=== PATIENT | female | born 1945 | race Caucasian/White ===

== ENCOUNTER 2018-06-15 07:40 | Inpatient (IN) ==
--- NOTE | 2018-06-15 07:44 | Emergency Department Note ---
Disposition Clinical Impression: SBO (small bowel obstruction), Ischemic bowel disease Disposition: Still a Patient Condition: Good Referrals: Darin Delgado DO [Primary Care Provider] - Forms: ED Satisfaction Letter, Work/School Release General Adult HPI - General Stated complaint: R flank pain Time Seen by Provider: 06/15/18 07:42 Nursing Notes Reviewed: Yes Vital Signs Reviewed: Yes - History of Present Illness HPI Narrative: 73-year-old female just emergency department with concern for right lower quadrant abdominal pain that has been going on for the last 2 days. Patient reports nausea with it. She denies any fever, vomiting, diarrhea, constipation, hematuria, dysuria, urinary frequency, urinary urgency. Patient states that she has had multiple surgeries including an appendectomy, cholecystectomy, hernia repair. Patient states that she has had intermittent abdominal pain similar to this in the past, but has never been this bad before which prompted her visit to the emergency department today. Patient states the pain radiates into her right flank. - Related Data Previous Rx's Medication Instructions Recorded Ondansetron ODT [Zofran ODT] 4 mg PO Q6HR #10 tab.rapdis 09/08/16 cephALEXin [Keflex] 500 mg PO TID #30 capsule 09/08/16 Allergies Allergy/AdvReac Type Severity Reaction Status Date / Time Bee Pollen Allergy Anaphylaxis Verified 06/15/18 08:13 gabapentin Allergy Rash Verified 06/15/18 08:13 All systems ED: reviewed and negative except as stated. Review of Systems: As Per HPI Constitutional: Denies: fever Cardiovascular: Denies: chest pain Respiratory: Denies: dyspnea Gastrointestinal: Reports: abdominal pain, nausea. Denies: vomiting, diarrhea, constipation Genitourinary: Denies: urgency, dysuria, frequency, hematuria Musculoskeletal: Reports: back pain Neurological: Denies: headache Endocrine: Denies: fatigue Past Medical History - Past Medical History Medical history: Reports: atrial fibrillation, diabetes, hypertension, renal disease Psychiatric history: Reports: no psych history - Social History Smoking Status: Never smoker Smokeless Tobacco Status: No Alcohol use: Reports: none Drug use: Reports: none Physical Exam - General Limitations: no limitations General appearance: alert, in no apparent distress - Head Head exam: normocephalic - Eye Eye exam: Present: EOMI. Absent: scleral icterus - ENT ENT exam: mucous membranes moist - Neck Neck exam: Present: trachea midline - Chest Chest inspection: Present: symmetric chest wall rise - Cardiovascular Cardiovascular exam: Present: normal rhythm, tachycardia - Abdominal Exam Abdominal exam: Present: soft, tenderness. Absent: distention, guarding, rebound, rigidity Abdominal tenderness: Present: RLQ, moderate - Extremities Exam Extremities exam: Present: normal capillary refill - Back Exam Back exam: Absent: CVA tenderness (R), CVA tenderness (L) - Neurological Exam Neurological exam: Present: alert, oriented X3 - Psychiatric Psychiatric exam: Present: normal affect, normal mood - Skin Skin exam: Present: warm, dry, intact Course Vital Signs Temperature 97.5 F L 06/15/18 07:43 Pulse Rate 110 06/15/18 07:43 Respiratory Rate 18 06/15/18 07:43 Blood Pressure 98/67 06/15/18 07:43 O2 Sat by Pulse Oximetry 96 06/15/18 07:43 Temperature 97.5 F L 06/15/18 08:10 Pulse Rate 110 06/15/18 08:10 Respiratory Rate 18 06/15/18 08:10 Blood Pressure 98/67 06/15/18 08:10 O2 Sat by Pulse Oximetry 96 06/15/18 08:10 Oxygen Delivery Oxygen Delivery Room Air Medical Decision Making - [facility] Narrative Medical decision making narrative: 73-year-old female presents emergency department with right lower quadrant abdominal pain radiating to the right flank. Patient does not appear to be in any severe distress at this time. We will obtain CT scan of abdomen and pelvis with IV contrast. We are also provided fluids, pain medication, Zofran. CT scan of abdomen and pelvis reveals ventral hernia of the right lower quadrant is contained within the abdominal wall muscular layers. There is evidence of obstruction of the distal jejunum with dilated proximal loops and decompressed distal bowel loops. Within the hernia sac that is new ascites and bowel wall thickening and edema suggesting possible vascular compromise. Creatinine is mildly elevated at 1.32 with a GFR of 39. Other labs are within normal limits. I have obtained a lactic acid and is currently pending. Spoke with Dr. Peña, the general surgeon on the phone. She stated that she would have the patient admitted to her service. Patient has not eaten since 8:30 last night. Currently on Eliquis for atrial fibrillation. Last took Eliquis last night as well. I discussed the plan for admission with patient and family at bedside. They agree with plan. Abdomen/Pelvis CT 06/15/18 07:55 IMPRESSION: 1. Right lower quadrant ventral hernia which is contained within the abdominal wall muscular layers. New since the prior exam there is evidence of obstruction in the distal jejunum with dilated proximal loops and decompressed distal loops. Within the hernia sac there is new ascites and bowel wall thickening and edema suggesting possible vascular compromise. 2. No evidence of perforation. D/ / 06/15/2018 09:20:31 Satish Crane MD / Surekha Chowdhury Interpreting Provider: Satish Crane MD - Lab Data Result diagrams: 06/15/18 07:42 06/15/18 07:42 Lab Results 06/15/18 06/15/18 Range/Units 07:42 07:42 WBC 8.5 (4.3-11.1) K/mcL RBC 4.51 (3.82-4.97) M/mcL Hgb 14.3 (11.5-15.4) g/dL Hct 42.5 (35.3-44.9) % MCV 94.2 (83.0-100.0) fL MCH 31.7 (28.0-33.3) pg MCHC 33.6 (31.6-35.5) g/dL RDW 12.6 (11.5-14.5) % Plt Count 263 (140-400) K/mcL MPV 9.8 (9.4-12.4) fL Immature Gran % 0.2 (0-4) % Seg Neutrophils % 63.5 % Lymphocytes % 29.0 % Monocytes % 5.9 % Eosinophils % 0.8 % Basophils % 0.6 % Neutrophils # 5.4 (1.6-8.9) K/mcL Lymphocytes # 2.5 (0.6-4.6) K/mcL Monocytes # 0.5 (0.0-1.3) K/mcL Eosinophils # 0.1 (0.0-0.6) K/mcL Basophils # 0.1 (0.0-0.2) K/mcL Sodium 136 (136-145) mEq/L Potassium 4.0 (3.5-5.1) mEq/L Chloride 101 (98-107) mEq/L Carbon Dioxide 22 L (23-29) mEq/L BUN 27 H (8-23) mg/dL Creatinine 1.32 H (0.60-1.20) mg/dL Est GFR ( Amer) 48 L (> 60) Est GFR (Non-Af Amer) 39 L (> 60) BUN/Creatinine Ratio 20 (6-26) Glucose 157 H (70-105) mg/dL Calculated Osmolality 290 (280-300) Calcium 9.2 (8.6-10.3) mg/dL Total Bilirubin 0.8 (0.3-1.0) mg/dL AST 15 (13-39) Units/L ALT 10 (7-52) Units/L Alkaline Phosphatase 71 (34-104) Units/L Serum Total Protein 6.7 (6.4-8.9) g/dL Albumin 3.8 (3.5-5.7) g/dL Globulin 2.9 (2.4-3.5) g/dL Albumin/Globulin Ratio 1.3 (1.1-2.2) Lipase 22 (11-82) Units/L
[2018-06-15] MEDS ORDERED: Isovue-370 500 ML INFUS..BTL IV ONE (07:56)
[2018-06-15] MEDS ORDERED: 0.9 % Sodium Chloride 1,000 ML IVC ONE (07:56)
[2018-06-15] MEDS ORDERED: Ondansetron 4 MG/2 ML VIAL IVP ONE (07:56)
[2018-06-15] MEDS ORDERED: *HR* FentaNYL (PF) 100 MCG/2 ML VIAL IVP ONE (07:56)
--- NOTE | 2018-06-15 08:11 | Emergency Department Note ---
Disposition Clinical Impression: Abdominal pain Qualifiers: Abdominal location: right lower quadrant Qualified Code(s): R10.31 - Right lower quadrant pain Disposition: Still a Patient Referrals: Darin Delgado DO [Primary Care Provider] - General Adult HPI - General Chief complaint: ED Abdominal Pain Stated complaint: R flank pain Time Seen by Provider: 06/15/18 07:42 Limitations: no limitations - History of Present Illness HPI Narrative: Attestation note I examined this patient and my medical decision-making was reviewed with the Resident Physician/STATUARY PAINTER/PA. I agree with the documented findings, disposition and treatment plan as described except to the extent set forth below Patient seen with emergency medicine resident Anatoly Stovall, please see copy of his note for details of this patient encounter Briefly: 73-year-old female multiple abdominal surgeries including appendectomy presents with a 2-3 days of increasing right lower quadrant right flank pain. No dysuria nausea but no vomiting no fever or chills she has right lower quadrant tenderness but no rebound or guarding. Normoactive bowel sounds she is passing gas. Blood pressure initially was a little low patient is having retractions getting IV fluids anti-medics analgesics screening labs urinalysis and abdominal pelvic CT. Disposition pending. Pain Scale: 9 - Related Data Previous Rx's Medication Instructions Recorded Ondansetron ODT [Zofran ODT] 4 mg PO Q6HR #10 tab.rapdis 09/08/16 cephALEXin [Keflex] 500 mg PO TID #30 capsule 09/08/16 Allergies Allergy/AdvReac Type Severity Reaction Status Date / Time Bee Pollen Allergy Anaphylaxis Verified 09/08/16 15:42 gabapentin Allergy Rash Verified 09/08/16 15:42 Constitutional: Denies: fever Cardiovascular: Denies: chest pain Respiratory: Denies: dyspnea Gastrointestinal: Reports: abdominal pain, nausea. Denies: vomiting, diarrhea, constipation Genitourinary: Denies: urgency, dysuria, frequency, hematuria Musculoskeletal: Reports: back pain Neurological: Denies: headache Endocrine: Denies: fatigue Past Medical History - Past Medical History Medical history: Reports: atrial fibrillation, diabetes, hypertension, renal disease Psychiatric history: Reports: no psych history - Social History Smoking Status: Never smoker Smokeless Tobacco Status: No Alcohol use: Reports: none Drug use: Reports: none Physical Exam - General Limitations: no limitations General appearance: alert, in no apparent distress Course Vital Signs Temperature 97.5 F L 06/15/18 07:43 Pulse Rate 110 06/15/18 07:43 Respiratory Rate 18 06/15/18 07:43 Blood Pressure 98/67 06/15/18 07:43 O2 Sat by Pulse Oximetry 96 06/15/18 07:43 Temperature 97.5 F L 06/15/18 07:43 Pulse Rate 110 06/15/18 07:43 Respiratory Rate 18 06/15/18 07:43 Blood Pressure 98/67 06/15/18 07:43 O2 Sat by Pulse Oximetry 96 06/15/18 07:43 Oxygen Delivery Oxygen Delivery Room Air
[2018-06-15 08:17] LABS: Basophils # 0.1 K/mcL (0.0-0.2); Basophils % 0.6 %; Eosinophils # 0.1 K/mcL (0.0-0.6); Eosinophils % 0.8 %; Hematocrit 42.5 % (35.3-44.9); Hemoglobin 14.3 g/dL (11.5-15.4); Immature Granulocytes % 0.2 % (0-4); Lymphocytes # 2.5 K/mcL (0.6-4.6); Mean Corpuscular HGB Conc 33.6 g/dL (31.6-35.5); Mean Corpuscular Hemoglobin 31.7 pg (28.0-33.3); Mean Corpuscular Volume 94.2 fL (83.0-100.0); Mean Platelet Volume 9.8 fL (9.4-12.4); Monocytes # 0.5 K/mcL (0.0-1.3); Monocytes % 5.9 %; Neutrophils # 5.4 K/mcL (1.6-8.9); Platelet Count 263 K/mcL (140-400); Red Blood Count 4.51 M/mcL (3.82-4.97); Red Cell Distribution Width 12.6 % (11.5-14.5); Segmented Neutrophils % 63.5 %
[2018-06-15 08:39] LABS: Albumin 3.8 g/dL (3.5-5.7); Albumin/Globulin Ratio 1.3 (1.1-2.2); Bilirubin,Total 0.8 mg/dL (0.3-1.0); Calcium 9.2 mg/dL (8.6-10.3); Globulin 2.9 g/dL (2.4-3.5); Total Protein 6.7 g/dL (6.4-8.9)
[2018-06-15] MEDS ORDERED: *HR* HYDROmorphone (PF) 1 MG/ML SYRINGE IVP ONE (09:25)
[2018-06-15 09:35] LABS: Bilirubin,Urine Negative (Negative); Blood,Urine Negative (Negative); Clarity,Urine Clear (Clear); Color,Urine Yellow (Yellow); Glucose,Urine (UA) Normal (Normal); Ketones,Urine Negative (Negative); Leukocyte Esterase,Urine Moderate (Negative); Nitrite,Urine Negative (Negative); Protein,Urine Negative (Neg-Trace); Specific Gravity,Urine > 1.030 (1.010-1.025); Urobilinogen,Urine Normal (Normal)
[2018-06-15 09:37] LABS: Bacteria,Urine Moderate per hpf (None-Few); Hyaline Casts,Urine None Seen per lpf (None-Few); RBC,Urine 0-3 per hpf (0-3); Squamous Epithelial Cell,Urine Many per lpf (None-Few); WBC,Urine 50-100 per hpf (0-3)
[2018-06-15] MEDS ORDERED: Naloxone 0.4 MG/ML INJ IVP PRN (11:46)
[2018-06-15] MEDS ORDERED: Ondansetron 4 MG/2 ML VIAL IVP PRN (11:46)
[2018-06-15] MEDS ORDERED: *HR* Promethazine 25 MG/ML VIAL IVP PRN (11:46)
[2018-06-15] MEDS ORDERED: Dextrose Gel 15 GM/37.5 ML TUBE PO PRN ×2 (11:50)
[2018-06-15] MEDS ORDERED: D5% in Water 1,000 ML IVC PRN (11:50)
[2018-06-15] MEDS ORDERED: Acetaminophen IV 1,000 MG/100 ML INFUS..BTL IVPB PRN (11:50)
[2018-06-15] MEDS ORDERED: *HR* Dextrose 50 % in Water (Syg) 50 ML SYRINGE IVP PRN (11:50)
--- NOTE | 2018-06-15 13:49 | General Surg History&Physical ---
<Adenike Peña - Last Filed: 06/15/18 14:10> Assessment and Plan (1) Atrial fibrillation Current Visit: Yes Status: Chronic The assessment and plan as outlined above was discussed with the patient and/or family members who expressed understanding and agreement. All questions were answered. continue po cardizem hold eliquis check EKG for surgery Qualifiers: Atrial fibrillation type: chronic Qualified Code(s): I48.2 - Chronic atrial fibrillation (2) Acute on chronic renal insufficiency Current Visit: Yes Status: Acute The assessment and plan as outlined above was discussed with the patient and/or family members who expressed understanding and agreement. All questions were answered. elevated Cr from baseline, continue ivf hydration trend Cr monitor I/Os (3) HTN (hypertension) Current Visit: Yes Status: Chronic The assessment and plan as outlined above was discussed with the patient and/or family members who expressed understanding and agreement. All questions were answered. ok to continue po meds prn antihypertensives Qualifiers: Hypertension type: essential hypertension Qualified Code(s): I10 - Essenti al (primary) hypertension (4) Diabetes type 2, controlled Current Visit: Yes Status: Chronic The assessment and plan as outlined above was discussed with the patient and/or family members who expressed understanding and agreement. All questions were answered. 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 All questions were answered. patient with SBO due to RLQ ventral hernia exam is benign at this time, no nausea or emesis currently will remain npo prn pain control ivf hydration discussed wiht patient and family CT scan, labs and exam, will plan robotic repair RLQ ventral hernia with mesh, possible open, risks and benefits discussed and she wishes to proceed will plan surgery in next 24-48 hours History of Present Illness Chief complaint: abdominal pain HPI: Ms. Wills is a 73 year old female Past Med Surg Social Fam HX - Past Medical History Source: patient Medical history: renal disease (CKD) Psychiatric history: no psych history - Past Surgical History Surgical History: cholecystectomy Additional surgical history: laparoscopic LLQ hernia repair with mesh - Family History Grandmother History Unknown: Yes Medications and Allergies Apixaban [Eliquis] 5 mg PO BID 06/15/18 [History] Diltiazem HCl [Diltiazem ER] 240 mg PO DAILY 06/15/18 [History] Glimepiride [Amaryl] 2 mg PO DAILY 06/15/18 [History] Gluc 2Kcl/Chondr/Ciarra Hy/Hy AC [Glucosamine & Chondroitin Cap] 1 each PO DAILY 06/15/18 [History] Insulin Glargine,Hum.rec.anlog [Basaglar Kwikpen U-100] 26 units SQ HS 06/15/18 [History] Lisinopril-HCTZ 20-12.5 [Prinzide 20-12.5] 0.5 tab PO DAILY 06/15/18 [History] Metformin HCl [Metformin HCl ER] 500 mg PO BID 06/15/18 [History] Omeprazole [PriLOSEC] 40 mg PO DAILY PRN 06/15/18 [History] Pravastatin Sodium [Pravachol] 40 mg PO MOWEFR 06/15/18 [History] Ubidecarenone [Co Q-10] 200 mg PO MOWEFR 06/15/18 [History] Allergy/AdvReac Type Severity Reaction Status Date / Time Bee Pollen Allergy Anaphylaxis Verified 06/15/18 08:13 gabapentin Allergy Rash Verified 06/15/18 08:13 Review of Systems All systems PM: reviewed and no additional remarkable complaints except as stated All systems PM: The remainder of the systems were reviewed and are negative General Surgery Exam Initial Vital Signs Temp Pulse Resp BP Pulse Ox 97.5 F L 110 18 98/67 96 06/15/18 07:43 06/15/18 07:43 06/15/18 07:43 06/15/18 07:43 06/15/18 07:43 - General physical appearance well developed, well nourished, no distress, no pain - Eyes PERRL, normal ocular movement - ENT normal mucosa, normocephalic - Neck trachea midline - Respiratory normal expansion, clear to auscultation - Cardiovascular Cardiovascular exam: Present: RRR, no murmurs/rubs/gallops - Abdomen Abdomen general surgery: Present: bowel sounds present, soft, tender (minimal/RLQ). Absent: tympanic, distended, guarding, rebound - Integumentary Integumentary general surgery: Present: warm and dry, no abnormal pigmentation - Neurologic Present: CN 2-12 grossly intact - Musculoskeletal Present: normal posture - Psychiatric Psychiatric general surgery: Present: A&Ox3, speech is normal Results - Labs 06/15/18 07:42 06/15/18 07:42 Abnormal lab results Carbon Dioxide 22 mEq/L (23-29) L 06/15/18 07:42 BUN 27 mg/dL (8-23) H 06/15/18 07:42 Creatinine 1.32 mg/dL (0.60-1.20) H 06/15/18 07:42 Est GFR ( Amer) 48 (> 60) L 06/15/18 07:42 Est GFR (Non-Af Amer) 39 (> 60) L 06/15/18 07:42 Glucose 157 mg/dL (70-105) H 06/15/18 07:42 Ur Specific Ripley > 1.030 (1.010-1.025) H 06/15/18 09:25 Ur Leukocyte Esterase Moderate (Negative) H 06/15/18 09:25 Urine Microscopic WBC 50-100 per hpf (0-3) H 06/15/18 09:25 Ur Squamous Epith Cells Many per lpf (None-Few) H 06/15/18 09:25 Urine Bacteria Moderate per hpf (None-Few) H 06/15/18 09:25 Ur Culture Indicated? NO. (NO) A 06/15/18 09:25 Diabetes panel 06/15/18 Range/Units 07:42 Sodium 136 (136-145) mEq/L Potassium 4.0 (3.5-5.1) mEq/L Chloride 101 (98-107) mEq/L Carbon Dioxide 22 L (23-29) mEq/L BUN 27 H (8-23) mg/dL Creatinine 1.32 H (0.60-1.20) mg/dL Glucose 157 H (70-105) mg/dL Calcium 9.2 (8.6-10.3) mg/dL AST 15 (13-39) Units/L ALT 10 (7-52) Units/L Alkaline Phosphatase 71 (34-104) Units/L Albumin 3.8 (3.5-5.7) g/dL Calcium panel 06/15/18 Range/Units 07:42 Calcium 9.2 (8.6-10.3) mg/dL Albumin 3.8 (3.5-5.7) g/dL Pituitary panel 06/15/18 Range/Units 07:42 Sodium 136 (136-145) mEq/L Potassium 4.0 (3.5-5.1) mEq/L Chloride 101 (98-107) mEq/L Carbon Dioxide 22 L (23-29) mEq/L BUN 27 H (8-23) mg/dL Creatinine 1.32 H (0.60-1.20) mg/dL Glucose 157 H (70-105) mg/dL Calcium 9.2 (8.6-10.3) mg/dL Adrenal panel 06/15/18 Range/Units 07:42 Sodium 136 (136-145) mEq/L Potassium 4.0 (3.5-5.1) mEq/L Chloride 101 (98-107) mEq/L Carbon Dioxide 22 L (23-29) mEq/L BUN 27 H (8-23) mg/dL Creatinine 1.32 H (0.60-1.20) mg/dL Glucose 157 H (70-105) mg/dL Calcium 9.2 (8.6-10.3) mg/dL Total Bilirubin 0.8 (0.3-1.0) mg/dL AST 15 (13-39) Units/L ALT 10 (7-52) Units/L Alkaline Phosphatase 71 (34-104) Units/L Albumin 3.8 (3.5-5.7) g/dL All other labs normal. - Imaging CT scan - abdomen: report reviewed, image reviewed CT scan - pelvis: report reviewed, image reviewed - Attending Attestation I examined this patient and my medical decision-making was reviewed with the Resident Physician. I agree with the documented findings, disposition and treatment plan as described except to the extent set forth below. <Helio Reyes - Last Filed: 06/15/18 16:07> Date of Encounter: 06/15/18 Time of Encounter: 10:00 Assessment and Plan (1) SBO (small bowel obstruction) Current Visit: Yes Status: Acute Evidence of SBO SBO 2/2 RLQ abdominal hernia Will plan for robotic hernia repair, possible open, in 24-48 hours Patient does not have much pain on physical exam IV acetaminophen for pain phenergan and zofran for nausea Protonix for GI prophylaxis Will hold eliquis for now Patient NPO (2) Atrial fibrillation Current Visit: Yes Status: Chronic Hold eliquis for surgery Continue cardizem Check EKG for surgery Qualifiers: Atrial fibrillation type: chronic Qualified Code(s): I48.2 - Chronic atrial fibrillation (3) Acute on chronic renal insufficiency Current Visit: Yes Status: Acute Cr elevated to 1.32 (baseline ~1.0) Continue IV fluids 100 ml/hr Trend creatinine Monitor I/Os (4) Diabetes type 2, controlled Current Visit: Yes Status: Chronic Recent glucose 157 On low dose sliding scale insulin Glucose checks every 6 hours Patient is NPO Qualifiers: Diabetes mellitus fpc insulin use: with fpc use Diabetes mellitus complication status: without complication Qualified Code(s): E11.9 - Type 2 diabetes mellitus without complications; 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 Wills is a 73 year old female with PMHx of DM, HTN, afib on eliquis, and CKD who presented to ED with complaints of abdominal pain and nausea for the past [address] which showed RLQ hernia in abdominal wall, obstruction in distal jejunum, bowel wall thickening and edema in hernia which suggests vascular compromise. Surgery was consulted to bowel obstruction and possible ischemic bowel. Patient seen and examined this AM. She states pain is located in right lower quadrant and radiates to suprapubic region. Patient states she had a bowel movement several days ago. She has not had a recent BM or flatus. Patient denies vomiting, fevers, diarrhea. Patient states she's had a cholecystectomy, appendectomy, and had a LLQ hernia repair in 2009. Past Med Surg Social Fam HX - Past Medical History Medical history: atrial fibrillation, diabetes, hypertension, renal disease Psychiatric history: no psych history - Past Surgical History Additional surgical history: hernia repair - Social History Smoking Status: Never smoker Smokeless Tobacco Status: No Alcohol use: none Drug use: none Review of Systems All systems PM: The remainder of the systems were reviewed and are negative General Surgery Exam Initial Vital Signs Temp Pulse Resp BP Pulse Ox 97.5 F L 110 18 98/67 96 06/15/18 07:43 06/15/18 07:43 06/15/18 07:43 06/15/18 07:43 06/15/18 07:43 Results - Labs 06/15/18 07:42 06/15/18 07:42 Abnormal lab results Carbon Dioxide 22 mEq/L (23-29) L 06/15/18 07:42 BUN 27 mg/dL (8-23) H 06/15/18 07:42 Creatinine 1.32 mg/dL (0.60-1.20) H 06/15/18 07:42 Est GFR ( Amer) 48 (> 60) L 06/15/18 07:42 Est GFR (Non-Af Amer) 39 (> 60) L 06/15/18 07:42 Glucose 157 mg/dL (70-105) H 06/15/18 07:42 Ur Specific Ripley > 1.030 (1.010-1.025) H 06/15/18 09:25 Ur Leukocyte Esterase Moderate (Negative) H 06/15/18 09:25 Urine Microscopic WBC 50-100 per hpf (0-3) H 06/15/18 09:25 Ur Squamous Epith Cells Many per lpf (None-Few) H 06/15/18 09:25 Urine Bacteria Moderate per hpf (None-Few) H 06/15/18 09:25 Ur Culture Indicated? NO. (NO) A 06/15/18 09:25 Diabetes panel 06/15/18 Range/Units 07:42 Sodium 136 (136-145) mEq/L Potassium 4.0 (3.5-5.1) mEq/L Chloride 101 (98-107) mEq/L Carbon Dioxide 22 L (23-29) mEq/L BUN 27 H (8-23) mg/dL Creatinine 1.32 H (0.60-1.20) mg/dL Glucose 157 H (70-105) mg/dL Calcium 9.2 (8.6-10.3) mg/dL AST 15 (13-39) Units/L ALT 10 (7-52) Units/L Alkaline Phosphatase 71 (34-104) Units/L Albumin 3.8 (3.5-5.7) g/dL Calcium panel 06/15/18 Range/Units 07:42 Calcium 9.2 (8.6-10.3) mg/dL Albumin 3.8 (3.5-5.7) g/dL Pituitary panel 06/15/18 Range/Units 07:42 Sodium 136 (136-145) mEq/L Potassium 4.0 (3.5-5.1) mEq/L Chloride 101 (98-107) mEq/L Carbon Dioxide 22 L (23-29) mEq/L BUN 27 H (8-23) mg/dL Creatinine 1.32 H (0.60-1.20) mg/dL Glucose 157 H (70-105) mg/dL Calcium 9.2 (8.6-10.3) mg/dL Adrenal panel 06/15/18 Range/Units 07:42 Sodium 136 (136-145) mEq/L Potassium 4.0 (3.5-5.1) mEq/L Chloride 101 (98-107) mEq/L Carbon Dioxide 22 L (23-29) mEq/L BUN 27 H (8-23) mg/dL Creatinine 1.32 H (0.60-1.20) mg/dL Glucose 157 H (70-105) mg/dL Calcium 9.2 (8.6-10.3) mg/dL Total Bilirubin 0.8 (0.3-1.0) mg/dL AST 15 (13-39) Units/L ALT 10 (7-52) Units/L Alkaline Phosphatase 71 (34-104) Units/L Albumin 3.8 (3.5-5.7) g/dL All other labs normal.
[2018-06-15] MEDS: 0.9 % Sodium Chloride 1,000 ML IVC SCH (15:00)
[2018-06-15] MEDS: Insulin LISPRO 300 UNITS/3 ML VIAL SQ SCH ×2 (15:01→18:41)
[2018-06-16] MEDS: Insulin LISPRO 300 UNITS/3 ML VIAL SQ SCH ×4 (00:14→18:42)
[2018-06-16] MEDS: 0.9 % Sodium Chloride 1,000 ML IVC SCH ×3 (02:43→14:17)
[2018-06-16 06:43] LABS: Basophils # 0.1 K/mcL (0.0-0.2); Eosinophils # 0.2 K/mcL (0.0-0.6); Eosinophils % 3.3 %; Hematocrit 41.4 % (35.3-44.9); Hemoglobin 13.6 g/dL (11.5-15.4); Immature Granulocytes % 0.3 % (0-4); Lymphocytes # 2.7 K/mcL (0.6-4.6); Lymphocytes % 44.2 %; Mean Corpuscular HGB Conc 32.9 g/dL (31.6-35.5); Mean Corpuscular Hemoglobin 31.9 pg (28.0-33.3); Mean Corpuscular Volume 97.2 fL (83.0-100.0); Mean Platelet Volume 10.2 fL (9.4-12.4); Monocytes # 0.5 K/mcL (0.0-1.3); Monocytes % 8.4 %; Neutrophils # 2.6 K/mcL (1.6-8.9); Platelet Count 227 K/mcL (140-400); Red Blood Count 4.26 M/mcL (3.82-4.97); Red Cell Distribution Width 12.7 % (11.5-14.5); Segmented Neutrophils % 42.8 %
[2018-06-16 06:49] LABS: INR 1.2; Prothrombin Time 13.3 Seconds (9.4-12.1)
[2018-06-16 07:06] LABS: BUN/Creatinine Ratio 16 (6-26); Blood Urea Nitrogen 16 mg/dL (8-23); Calcium 8.6 mg/dL (8.6-10.3); Carbon Dioxide 25 mEq/L (23-29); Chloride 105 mEq/L (98-107); Glucose 77 mg/dL (70-105); Magnesium 1.5 mg/dL (1.6-2.6); Osmolality,Calculated 288 (280-300); Phosphorous 3.8 mg/dL (2.7-4.5); Potassium 3.8 mEq/L (3.5-5.1); Sodium 139 mEq/L (136-145); eGFR For Non-African Americans 55 (> 60)
[2018-06-16] MEDS ORDERED: Diltiazem CD (24hr) 240 MG CAPSULE PO SCH (09:00)
[2018-06-16] MEDS ORDERED: Lisinopril-HCTZ 20-12.5mg TABLET PO SCH (09:00)
[2018-06-16] MEDS ORDERED: Pantoprazole 40 MG VIAL IVP SCH (09:00)
[2018-06-16] MEDS ORDERED: Scopolamine Patch 1.5 MG PATCH.TD72 ONE (16:45)
[2018-06-16] MEDS ORDERED: Famotidine 20 MG/2 ML VIAL ONE (16:45)
[2018-06-16] MEDS ORDERED: Ondansetron 4 MG/2 ML VIAL ONE ×2 (16:45→17:12)
[2018-06-16] MEDS ORDERED: Metoclopramide 10 MG/2 ML VIAL ONE (16:45)
--- NOTE | 2018-06-16 16:51 | Anesthesia Evaluation PreOp ---
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 DEVELOPER History: Denies Any Significant HX Other Medical History: Renal (Acute on chronic renal insufficiency), Diabetes Type II, GERD Anesthesia History: No Prior Anesthetic Complications, Past Anesthesia (Federica, L-IHR w/mesh) Alcohol Use: none Drug use: none Medications and Allergies Apixaban [Eliquis] 5 mg PO BID 06/15/18 [History] Diltiazem HCl [Diltiazem ER] 240 mg PO DAILY 06/15/18 [History] Glimepiride [Amaryl] 2 mg PO DAILY 06/15/18 [History] Gluc 2Kcl/Chondr/Ciarra Hy/Hy AC [Glucosamine & Chondroitin Cap] 1 each PO DAILY 06/15/18 [History] Insulin Glargine,Hum.rec.anlog [Basaglar Kwikpen U-100] 26 units SQ HS 06/15/18 [History] Lisinopril-HCTZ 20-12.5 [Prinzide 20-12.5] 0.5 tab PO DAILY 06/15/18 [History] Metformin HCl [Metformin HCl ER] 500 mg PO BID 06/15/18 [History] Omeprazole [PriLOSEC] 40 mg PO DAILY PRN 06/15/18 [History] Pravastatin Sodium [Pravachol] 40 mg PO MOWEFR 06/15/18 [History] Ubidecarenone [Co Q-10] 200 mg PO MOWEFR 06/15/18 [History] Allergy/AdvReac Type Severity Reaction Status Date / Time Bee Pollen Allergy Anaphylaxis Verified 06/15/18 08:13 gabapentin Allergy Rash Verified 06/15/18 08:13 - Meds/Allergy Pre-op Review Medications Reviewed: Yes Allergies Reviewed: Yes Beta Blockers on Current Med List: No Anesthesia Results - Labs 06/16/18 05:54 06/16/18 05:54 Laboratory Results Impressions Abdomen/Pelvis CT 06/15/18 07:55 IMPRESSION: 1. Right lower quadrant ventral hernia which is contained within the abdominal wall muscular layers. New since the prior exam there is evidence of obstruction in the distal jejunum with dilated proximal loops and decompressed distal loops. Within the hernia sac there is new ascites and bowel wall thickening and edema suggesting possible vascular compromise. 2. No evidence of perforation. D/ / 06/15/2018 09:20:31 Satish Crane MD / Surekha Chowdhury Interpreting Provider: Satish Crane MD Chest X-Ray 06/15/18 14:11 IMPRESSION: Technically suboptimal expiratory phase respiration AP chest with resultant vascular crowding and underaeration parahilar regions. No definite acute pulmonary disease. Calcific atherosclerotic disease aorta. D/ / Mao Madison / Mao Madison Interpreting Provider: Mao Madison Anesthesia Exam Vital Signs Temp Pulse Resp BP Pulse Ox 06/16/18 14:04 97.4 F L 84 16 102/50 94 06/16/18 10:38 97.9 F 95 16 115/59 91 06/16/18 06:45 98.0 F 91 16 116/76 90 06/16/18 04:00 98.3 F 70 15 103/74 90 06/16/18 00:19 98.3 F 95 15 117/71 94 06/15/18 19:04 98.0 F 100 16 104/73 92 Intake and Output 06/16/18 06/16/18 06/16/18 07:59 15:59 23:59 Intake Total 1000 / 1000 1000 / 1000 Output Total 1400 / 1400 500 / 500 Balance -400 / -400 500 / 500 Intake: IV Fluids 1000 / 1000 1000 / 1000 0.9 % Sodium Chloride 1,000 ML 1000 / 1000 @ 100 mls/hr IVC .Q10H MARIE Rx#: [id number] Dextrose 5% 1,000 ML @ 100 mls/ 1000 / 1000 hr IVC .Q10H PRN Rx#:[id number] Oral 0 / 0 0 / 0 Output: Urine 1400 / 1400 500 / 500 Other: Meal NPO Percent of Meal Consumed 0% # Bowel Movements 0 Weight 91.2 kg Blood Glucose* 86 86 Patient Weight 06/16/18 23:59 Weight 91.2 kg Height: 5'3" Weight: 201# bmi= 35.6 NPO (# of Hours): mnOC - HEENT Pupil (Motor): Pupils equal, EOMI Mallampati: II Teeth: Normal, Missing Oral Opening: Greater than 3 - TERADATA DEVELOPER LOC: Oriented TERADATA DEVELOPER Motor: Normal RUE, Normal LUE, Normal RLE, Normal LLE, Normal Face TERADATA DEVELOPER Sensory: Normal: RUE, LUE, RLE, LLE, Face - Cardiac Rhythm: Irregular Murmur: None JVD: No - Pulmonary Breath Sounds: bilateral Clear Respiratory Effort: Symmetrical Anesthesia Assess/Plan ASA Score: 3 (AFib, Obesity, DM,) Modified Narberth Scale for Level of Consciousness: Cooperative, oriented, and tranquil Anesthetic Plan: General Monitoring Plan: Standard Monitors Recovery Plan: PACU Anes Supervising Prov Stmt: Pt seen/evaluated, R&B Discussed, questions answered and consent obtained. Charles Gallegos MD
[2018-06-16] MEDS ORDERED: Famotidine 20 MG/2 ML VIAL IVP ONE (16:54)
[2018-06-16] MEDS ORDERED: Metoclopramide 10 MG/2 ML VIAL IVP ONE (16:54)
[2018-06-16] MEDS ORDERED: Scopolamine Patch 1.5 MG PATCH.TD72 TD ONE (16:55)
[2018-06-16] MEDS ORDERED: *HR* FentaNYL (PF) 100 MCG/2 ML VIAL ONE (17:10)
[2018-06-16] MEDS ORDERED: *HR* Propofol 200 MG/20 ML VIAL IVP ONE (17:10)
[2018-06-16] MEDS ORDERED: Lidocaine -MPF 2% 2 ML VIAL ONE (17:12)
[2018-06-16] MEDS ORDERED: *HR* Rocuronium Bromide 50 MG/5 ML VIAL ONE (17:12)
[2018-06-16] MEDS ORDERED: Dexamethasone 4 MG/ML VIAL ONE (17:12)
[2018-06-16] MEDS ORDERED: *HR* Succinylcholine 200 MG/10 ML VIAL IVP ONE (17:12)
[2018-06-16] MEDS ORDERED: Lidocaine -MPF 4% 5 ML AMPUL ONE (17:12)
[2018-06-16] MEDS ORDERED: *HR* PHENYLEPHRINE 1,000 MCG/10 ML SYRINGE IVP ONE ×2 (17:51→17:57)
[2018-06-16] MEDS ORDERED: *HR* Labetalol 20 MG/4 ML SYRINGE IVP PRN (17:58)
[2018-06-16] MEDS ORDERED: *HR* HYDROmorphone (PF) 1 MG/ML SYRINGE IVP PRN (17:58)
[2018-06-16] MEDS ORDERED: Ondansetron 4 MG/2 ML VIAL IVP ONE (17:58)
[2018-06-16] MEDS ORDERED: Neostigmine Methylsulfate 3 MG/3 ML SYRINGE ONE (19:16)
[2018-06-16] MEDS ORDERED: *HR* Morphine 10 MG/ML VIAL ONE (19:27)
--- NOTE | 2018-06-16 19:43 | Operative Note ---
Date of procedure: 06/16/18 Pre-op diagnosis: ventral hernia Post-op diagnosis: other (incisional ventral hernia) Procedure: RObotic incisional ventral hernia repair with mesh Complications: none immediate Anesthesia: GRAEME local Surgeon: Adenike Peña Was there an captain's assistant present: No Quality Control Scientist Other: Yossi Cisse Estimated blood loss (cc): 5 Specimen: none Condition: stable Disposition: PACU Procedure in Detail: The patient was brought to the operating suite and placed supine on the operating table. Sign in was performed and everyone was in agreement. Anesthesia was induced and patient was endotracheally intubated by anesthesia without incident. The arms were tucked bilaterally at the sides. A chu catheter was placed by the circulating nurse. The abdomen was prepped and draped in the usual sterile fashion. Timeout was performed again everyone was in agreement. An incision in the left upper quadrant subcostal position was made with an 11 blade. The Veress needle was placed through this and a water drop test confirmed placement. The abdomen was insufflated. We then entered the abdomen with a 5 mm 0 degree laparoscope on a 5 mm Xcel trocar. The area under entry was visualized there was no bleeding or apparent organ injury. We then placed a 8 mm port in the left lateral position under direct visualization after first incising the skin with an 11 blade. We then placed a 8 mm port in the subxiphoid region under direct visualization after first incising the skin with an 11 blade. The laparoscope was placed through this and we exchanged the 5 mm left upper quadrant port for an 12 mm port. The patient was placed in slight Trendelenburg position. Three 0 V-lock absorbable stitches were placed in the abdominal cavity as well as a 12 cm round symbotex covidian mesh. The mesh had a previously placed 2-0 vicryl tied to the middle of the mesh. The robot was brought over the patient's right abdomen and docked. Hernia sac was dissected from the right lower quadrant incisional ventral hernia bluntly and with heated scissors and transected with scissors. The hernia defect was then closed with an 0 V-LOC absorbable running stitch. The 2-0 Vicryl in the middle of the mesh was then pulled up through the abdominal wall near the hernia defect with a laparoscopic suture passer after a stab incision in the left abdomen skin several centimeters away was made with 11 blade. The mesh was pulled up to the abdominal wall with the Vicryl stitch and hemostat was placed keeping the mesh taut against the abdominal wall. The mesh was secured to the abdominal wall with two 0 V-loc vicryl running stitch circumferentially. The three sutures were removed from the abdominal cavity and the previously dissected and transected hernia sac was placed in a laparoscopic endocatch bag and removed from the abdominal cavity. The air was evacuated from the abdominal cavity and the trochars removed. The 12 mm trocar site was closed at the abdominal wall with an 0 Vicryl [id number] stitch. 30 mL of 0.5% Marcaine was injected subcutaneously at the 3 port sites. The skin at the 12 mm port site was closed with a 4-0 Monocryl running subcuticular stitch. The skin at the two 8 mm port sites were closed with a 4-0 Monocryl interrupted stitch. steristrips applied to all 4 wounds. The chu catheter was removed. All lap and instrument counts are correct at the end of the case. The patient was awoken by anesthesia and extubated in the OR without incident. The patient tolerated procedure well taken to PACU in stable condition.
--- NOTE | 2018-06-16 20:23 | Anesthesia Evaluation Post Op ---
Date of Encounter: 06/16/18 Time of Encounter: 20:15 - Vital Signs Vital Signs: Vital Signs/O2 Sat/Glucose, Most Current Temp Pulse Resp BP Pulse Ox 06/16/18 19:53 84 16 105/50 88 06/16/18 19:43 97.4 F L 105 14 90/58 88 - Lungs Lungs: Clear Ascult./Percussion - Airway Airway: Non-obstructed - Cardiovascular Regular Rate - Mental Status Mental Status: Alert & Oriented, Answers Appropriately - Pain Pain Scale: 0 - Nausea Vomiting Nausea Vomiting: Not Present - Hydration Hydration: Ice chips - Discharge PostOp Status: Transfer Patient to floor
[2018-06-17] MEDS: Insulin LISPRO 300 UNITS/3 ML VIAL SQ SCH ×2 (05:19→05:23)
[2018-06-17] MEDS: 0.9 % Sodium Chloride 1,000 ML IVC SCH (05:23)
[2018-06-17] MEDS ORDERED: *HR* Dextrose 50 % in Water (Syg) 50 ML SYRINGE IVP PRN (07:15)
[2018-06-17] MEDS ORDERED: Dextrose Gel 15 GM/37.5 ML TUBE PO PRN ×2 (07:15)
[2018-06-17] MEDS ORDERED: 0.9 % Sodium Chloride 1,000 ML IVC SCH (07:15)
[2018-06-17] MEDS ORDERED: Ondansetron 4 MG/2 ML VIAL IVP PRN (07:15)
[2018-06-17] MEDS ORDERED: MORPHINE SUL Oral CONC 10 MG/0.5 ML ORAL.SYG SL PRN (07:15)
[2018-06-17] MEDS ORDERED: *HR* Promethazine 25 MG/ML VIAL IVP PRN (07:15)
[2018-06-17] MEDS ORDERED: *HR* OxyCODONE/APAP 5/325 TABLET PO PRN (07:15)
[2018-06-17] MEDS ORDERED: Naloxone 0.4 MG/ML INJ IVP PRN (07:15)
[2018-06-17] MEDS ORDERED: D5% in Water 1,000 ML IVC PRN (07:15)
[2018-06-17] MEDS ORDERED: Acetaminophen IV 1,000 MG/100 ML INFUS..BTL IVPB PRN (07:15)
[2018-06-17] MEDS ORDERED: Pantoprazole 40 MG VIAL IVP SCH (09:00)
[2018-06-17] MEDS ORDERED: Diltiazem CD (24hr) 240 MG CAPSULE PO SCH (09:00)
[2018-06-17] MEDS ORDERED: Lisinopril-HCTZ 20-12.5mg TABLET PO SCH (09:00)
[2018-06-17 09:36] LABS: Basophils % 0.2 %; Hematocrit 41.4 % (35.3-44.9); Hemoglobin 13.3 g/dL (11.5-15.4); Immature Granulocytes % 0.5 % (0-4); Lymphocytes # 1.3 K/mcL (0.6-4.6); Lymphocytes % 13.5 %; Mean Corpuscular HGB Conc 32.1 g/dL (31.6-35.5); Mean Corpuscular Hemoglobin 31.7 pg (28.0-33.3); Mean Corpuscular Volume 98.6 fL (83.0-100.0); Mean Platelet Volume 10.2 fL (9.4-12.4); Monocytes # 0.4 K/mcL (0.0-1.3); Monocytes % 4.6 %; Neutrophils # 7.7 K/mcL (1.6-8.9); Platelet Count 239 K/mcL (140-400); Red Cell Distribution Width 12.7 % (11.5-14.5); Segmented Neutrophils % 81.2 %
[2018-06-17 10:11] LABS: Calcium 8.3 mg/dL (8.6-10.3); Magnesium 1.5 mg/dL (1.6-2.6); Phosphorous 4.6 mg/dL (2.7-4.5); Potassium 4.4 mEq/L (3.5-5.1)
--- NOTE | 2018-06-17 11:02 | Discharge Summary ---
Orders not resulted at time of discharge: Pending orders 06/18/18 04:00 Basic Metabolic Panel AM 0400 Complete Blood Count [HEME] AM 0400 Magnesium AM 0400 Phosphorous AM 0400 Date of Encounter: 06/17/18 Time of Encounter: 10:00 - Discharge Diagnosis (1) Atrial fibrillation Priority: Secondary Status: Chronic Qualifiers: Atrial fibrillation type: chronic Qualified Code(s): I48.2 - Chronic atrial fibrillation (2) HTN (hypertension) Priority: Secondary Status: Chronic Qualifiers: Hypertension type: essential hypertension Qualified Code(s): I10 - Essential (primary) hypertension (3) Diabetes type 2, controlled Priority: Secondary Status: Chronic Qualifiers: Diabetes mellitus jail insulin use: with terminal operations manager use Diabetes mellitus complication status: without complication Qualified Code(s): E11.9 - Type 2 diabetes mellitus without complications; 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 (4) SBO (small bowel obstruction) Priority: Primary Status: Acute General Surgery Exam Initial Vital Signs Temp Pulse Resp BP Pulse Ox 97.5 F L 110 18 98/67 96 06/15/18 07:43 06/15/18 07:43 06/15/18 07:43 06/15/18 07:43 06/15/18 07:43 Vital Signs Temp Pulse Resp BP Pulse Ox 06/17/18 12:05 98.5 F 98 16 125/65 96 06/17/18 06:42 97.6 F 88 16 108/68 97 06/17/18 04:00 98.2 F 82 16 89/61 94 06/16/18 23:25 97.2 F L 81 20 95/66 06/16/18 22:25 97.5 F L 78 16 101/54 06/16/18 21:25 97.6 F 69 16 113/76 06/16/18 20:25 95.3 F L 68 20 103/70 91 06/16/18 20:13 64 14 102/51 91 06/16/18 20:03 81 18 112/64 91 06/16/18 19:53 84 16 105/50 88 06/16/18 19:43 97.4 F L 105 14 90/58 88 Intake and Output 06/16/18 06/17/18 06/17/18 23:59 07:59 15:59 Intake Total 100 / 100 1060 / 1060 920 / 920 Output Total 405 / 405 0 / 0 300 / 300 Balance -305 / -305 1060 / 1060 620 / 620 Intake: IV Fluids 100 / 100 1000 / 1000 0.9 % Sodium Chloride 1,000 ML 1000 / 1000 @ 100 mls/hr IVC .Q10H MARIE Rx#: [id number] Ofirmev 1,000 mg/100 ml 1,000 100 / 100 mg In 100 ml @ 400 mls/hr IVPB Q6HR PRN Rx#:[id number] Oral 60 / 60 920 / 920 Output: Urine 400 / 400 0 / 0 300 / 300 Estimated Blood Loss 5 / 5 Other: Meal Lunch Percent of Meal Consumed 100% Weight 91.4 kg Blood Glucose* 142 184 280 Patient Weight 06/17/18 23:59 Weight 91.4 kg VITAL SIGNS: Reviewed. See [facility] GENERAL: In no apparent distress. HEENT: Normocephalic, atraumatic, pupils are equal and reactive, oropharynx is pink and moist, there is no neck adenopathy or JVD noted. CHEST/RESPIRATORY: The thorax is free from signs of trauma. Lung sounds: clear to auscultation, normal respiratory effort CARDIAC: irregularly irregular rhythm.. VASCULAR: No Edema. 2+ peripheral pulses. ABDOMEN: soft, expected postoperative tenderness, minimal amount of surrounding-incisional ecchymosis. INCISION: Surgical incision is clean, dry, and intact. There are no signs of cellulitis or infection noted. MUSCULOSKELETAL: Good range of motion of all major joints. Extremities without clubbing, cyanosis or edema. NEUROLOGIC EXAM: Alert and oriented x 3. Speech normal. Follows commands. PSYCHIATRIC: Mood normal. SKIN: No rash or lesions. - Hospital Course Hospital course: Ms. Wills is a 73 year old female who was taken to the operating room on 06/16/2018 for a robotic incisional ventral hernia repair with 12 cm around Symbotex covidian mesh by Dr. Peña. She is ambulating and voiding without difficulty, tolerating a diet without nausea or vomiting, afebrile, and her vital signs are stable. There is no evidence of bleeding currently. We'll begin discharge planning to home with a follow-up in the office with Dr. Peña in approximately 2 weeks. Her course was complicated by recent steroid use and concern for postoperative bleeding vs need for anticoagulation given her current atrial fib status. Anticoagualton was held for aprox 36 hour postoperatively. She is instructed to inject Lovenox daily on Saturday and , then resume her normal Eliquis schedule on Saturday (post-op day 4). - Time Spent with Patient Total time spent providing and/or coordinating discharge services: - Discharge Medications Prescriptions: OxyCODONE/APAP 5/325 [Percocet 5/325 MG] 1 each PO Q6HR PRN 7 Days #28 tablet PRN Reason: Pain Enoxaparin [Lovenox] 100 mg SQ Q12HR 2 Days #4 syr Docusate Sodium [Colace] 100 mg PO BID PRN #30 capsule PRN Reason: Constipation Home Medications: Diltiazem HCl [Diltiazem ER] 240 mg PO DAILY 06/15/18 [History] Glimepiride [Amaryl] 2 mg PO DAILY 06/15/18 [History] Gluc 2Kcl/Chondr/Ciarra Hy/Hy AC [Glucosamine & Chondroitin Cap] 1 each PO DAILY 06/15/18 [History] Insulin Glargine,Hum.rec.anlog [Basaglar Kwikpen U-100] 26 units SQ HS 06/15/18 [History] Lisinopril-HCTZ 20-12.5 [Prinzide 20-12.5] 0.5 tab PO DAILY 06/15/18 [History] Metformin HCl [Metformin HCl ER] 500 mg PO BID 06/15/18 [History] Omeprazole [PriLOSEC] 40 mg PO DAILY PRN 06/15/18 [History] Pravastatin Sodium [Pravachol] 40 mg PO MOWEFR 06/15/18 [History] Ubidecarenone [Co Q-10] 200 mg PO MOWEFR 06/15/18 [History] Apixaban [Eliquis] 5 mg PO BID #0 06/17/18 [Rx] Docusate Sodium [Colace] 100 mg PO BID PRN #30 capsule 06/17/18 [Rx] Enoxaparin [Lovenox] 100 mg SQ Q12HR 2 Days #4 syr 06/17/18 [Rx] OxyCODONE/APAP 5/325 [Percocet 5/325 MG] 1 each PO Q6HR PRN 7 Days #28 tablet 06/17/18 [Rx] Allergies/Adverse Reactions: Allergy/AdvReac Type Severity Reaction Status Date / Time Bee Pollen Allergy Anaphylaxis Verified 06/15/18 08:13 gabapentin Allergy Rash Verified 06/15/18 08:13 Date of admission: 06/16/18 13:08 Primary care physician: Rakesh Delgado DO Consults: 06/15/18 09:52 Consult to Surgery [CONS] Stat Consulting Provider: Adenike Peña Reason for Consult: SBO with concern for possible vascular compromise Time Notified: 09:53 Call Completed: Yes 06/15/18 14:57 Consult to Pastoral Services [CONS] Routine Comment: Discharging clinician: Nan Gallegos Anticipated date of discharge: 06/17/18 Labs on day of discharge: Labs from last 24 hours 06/17/18 06/17/18 06/16/18 09:20 09:20 11:11 WBC 9.5 D RBC 4.20 Hgb 13.3 Hct 41.4 MCV 98.6 MCH 31.7 MCHC 32.1 RDW 12.7 Plt Count 239 MPV 10.2 Immature Gran % 0.5 Seg Neutrophils % 81.2 Lymphocytes % 13.5 Monocytes % 4.6 Eosinophils % 0.0 Basophils % 0.2 Neutrophils # 7.7 Lymphocytes # 1.3 Monocytes # 0.4 Eosinophils # 0.0 Basophils # 0.0 Sodium 136 Potassium 4.4 Chloride 105 Carbon Dioxide 19 L BUN 24 H Creatinine 1.13 Est GFR ( Amer) 57 L Est GFR (Non-Af Amer) 47 L BUN/Creatinine Ratio 21 Glucose 322 H POC Glucose 86 Calculated Osmolality 298 Calcium 8.3 L Phosphorus 4.6 H Magnesium 1.5 L - Impressions ITS Impressions Abdomen/Pelvis CT 06/15/18 07:55 IMPRESSION: 1. Right lower quadrant ventral hernia which is contained within the abdominal wall muscular layers. New since the prior exam there is evidence of obstruction in the distal jejunum with dilated proximal loops and decompressed distal loops. Within the hernia sac there is new ascites and bowel wall thickening and edema suggesting possible vascular compromise. 2. No evidence of perforation. D/ / 06/15/2018 09:20:31 Satish Crane MD / Surekha Chowdhury Interpreting Provider: Satish Crane MD Chest X-Ray 06/15/18 14:11 IMPRESSION: Technically suboptimal expiratory phase respiration AP chest with resultant vascular crowding and underaeration parahilar regions. No definite acute pulmonary disease. Calcific atherosclerotic disease aorta. D/ / Mao Madison / Mao Madison Interpreting Provider: Mao Madison - Patient Status Disposition: Home, Self-Care Condition: Good Functional capacity at discharge: independent ambulation Overall status at discharge: patient is progressing back to baseline - Discharge Instructions Instructions: Laparoscopic Herniorrhaphy (DC), Postoperative Bleeding (GEN) Follow Up With: Darin Delgado DO [Primary Care Provider] - Adenike Peña MD [Partnered Physician] - 07/02/18 1:50 pm Additional Instructions: General Surgical Discharge Instructions 1. No pushing, pulling, or lifting greater than 15 lbs for 2-4 weeks (depending upon procedure). 2. You may shower beginning today, but no tub baths, soaking, or swimming for 2 weeks. 3. You may resume driving when you are off narcotics and are safe to react in a car. 4. Take ibuprofen every 8 hours for discomfort. If this does not relieve discomfort, you may take the as needed Percocet. Take narcotics as directed. Do not take more narcotics then directed and do not share your narcotics with any other person. Do not drink alcohol while on narcotics. 5. Take stool softeners (Colace) or a water based laxative (Miralax) while taking narcotics. You may hold for loose stools. 6. Report any fevers greater than 100.5F, increase abdominal discomfort, drainage that looks like pus, increased redness or pain at the surgical site, or any vomiting. 7. Report any pain in the calves, shortness of breath, or rapid heartbeat. 8. Follow-up in the office as directed. 9. If you were prescribed antibiotics, do not stop them without talking to your provider. RISK OF BLEEDING WITH ANTICOAGULATION (BLOOD THINNERS) 1. You are being discharged on Lovenox bridging therapy. We recommend only injecting once daily rather than twice daily given your risk of bleeding (due to previous steroid use). 2. Inject Lovenox on Saturday morning and morning (PLEASE NOTE THIS IS A CHANGE FROM THE ORIGINAL PRESCRIPTION YOU RECEIVED AND YOU WILL THEREFORE HAVE TWO EXTRA LOVENOX DOSES). 3. On Saturday am, resume your normal dosing of Eliquis. 4. Report any increase in abdominal pain, feeling light head or dizziness, firmness or swelling in the abdomen, or excessive bruising. If you feel short of breath or pass out, go to the emergency department. - Diet and Activity Activity: increase activity as tolerated Diet: advance to your usual diet
[2018-06-17] MEDS ORDERED: Insulin LISPRO 300 UNITS/3 ML VIAL SQ SCH (12:00)
[2018-06-17 12:12] VITALS: BP 125/65
--- NOTE | 2018-06-20 19:19 | Electrocardiograph Report ---
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
== END 2018-06-17 14:42 | disposition home or self-care (01) | DRG 354 ==
LOC: EMEROOARM 07:40 → 3ANU 07:40
PROVIDERS: ADMIT Surgery; ATTEND Surgery